=== PATIENT | female | born 1970 | race Caucasian/White ===

== ENCOUNTER → 2019-11-14 11:21 | Outpatient (CLI) | payer OTHER, SELFPAY ==
--- NOTE | ~2019-11-14 | MM_ITS ---
EXAMINATION: MM screening mark anthony BI w isaura HISTORY: Screening mammogram TECHNIQUE: Craniocaudal and mediolateral oblique 3-D tomosynthesis images were obtained and synthetic 2-D images were generated. CAD analysis was submitted and interpreted. COMPARISON: 08/02/2018, 06/29/2017, 06/23/2016 bilateral digital screening mammogram examinations BREAST PARENCHYMAL COMPOSITION: There are scattered areas of fibroglandular density. FINDINGS: There are scattered bilateral benign calcifications. There is no evidence of suspicious mas s, calcification, or architectural distortion to suggest malignancy in either breast. There has been no suspicious interval change. IMPRESSION: 1. No mammographic evidence of malignancy. 2. Recommend routine screening mammography in one year. BI-RADS Category 2: Benign finding(s). Reviewed, dictated and finalized at location A.
== END ==
PROVIDERS: Visit Provider Obstetrics & Gynecology
DX: Z12.31 Encounter for screening mammogram for malignant neoplasm of breast (principal)
CPT/HCPCS: 77063; 77067

== ENCOUNTER → 2020-12-27 13:14 | Outpatient (CLI) | payer OTHER, SELFPAY ==
--- NOTE | ~2020-12-27 | MM_ITS ---
EXAMINATION: MM screening mark anthony BI w isaura HISTORY: Screening mammogram TECHNIQUE: Craniocaudal and mediolateral oblique 3-D tomosynthesis images were obtained and synthetic 2-D images were generated. CAD analysis was submitted and interpreted. COMPARISON: 11/14/2019, , 06/29/2017, 06/19/2016, 06/01/2015, 3 5 07/2014, 04/22/2013 bilateral scr eening mammogram examinations bilateral digital screening mammogram examinations BREAST PARENCHYMAL COMPOSITION: The breasts are heterogeneously dense, which may obscure small masses . FINDINGS: Approximately 5 x 12 mm asymmetric opacity is noted anteriorly in the inner mid right breas t. Diagnostic right mammogram is recommended, with ultrasound if required. Otherwise there is no evidence of suspicious mass, calcification, or architectural distortion to sugg est malignancy in either breast. There has been no other suspicious interval change. IMPRESSION: 1. Focal asymmetry in the anterior inner mid right breast 2. Diagnostic right mammogram is recommended, with ultrasound if required BI-RADS Category 0: Incomplete: Needs additional imaging evaluation. Reviewed, dictated and finalized at location A.
== END ==
PROVIDERS: Visit Provider Obstetrics & Gynecology
DX: Z12.31 Encounter for screening mammogram for malignant neoplasm of breast (principal); R92.8 Other abnormal and inconclusive findings on diagnostic imaging of breast
CPT/HCPCS: 77063; 77067

== ENCOUNTER 2021-01-11 13:41 | Outpatient (CLI) | payer OTHER, SELFPAY ==
--- NOTE | ~2021-01-11 | MMUS_ITS ---
EXAMINATION: MM diagnostic mark anthony RT w isaura, US breast RT limited HISTORY: Focal asymmetry reported in anterior inner mid right breast on 12/27/2020 screening mammogra m TECHNIQUE: Additional 3-D tomosynthesis images of the right breast were performed and synthetic 2-D i mages were generated. CAD analysis was submitted and interpreted. High resolution upper inner and low er inner quadrant right breast ultrasound was performed. COMPARISON: 12/27/2020, 11/14/2019, 08/02/2018, 06/29/2017 bilateral screening mammogram FINDINGS: MAMMOGRAPHIC FINDINGS: A circumscribed smooth margin wishbone-shaped approximately 3.3 x 15 mm opacity is noted in the anter ior inner right breast. Upper and lower inner right breast ultrasound examination was performed for c orrelation. ULTRASOUND: A mildly irregular antiparallel approximately 3.9 mm wide 5.1 mm deep lesion is noted at 3:00 1 cm fr om the nipple, corresponding to the mammographic finding. Some posterior shadowing is noted. Ultrasou nd-guided biopsy is recommended. IMPRESSION: 1. Mildly irregular antiparallel 3.9 x 5.1 mm mildly shadowing sonographic lesion at 3:00 1 cm from t he nipple 2. Ultrasound-guided biopsy is recommended BI-RADS category 4, suspicious findings. Dr. Sheldon telephoned the report and ultrasound guided biopsy recommendation of the right breast 3:[address] Gardner's emergency service on 01/11/2021 at 1640 hours. Reviewed, dictated and finalized at location A. F TENDER HELPER IMPRESSION: 1. Mildly irregular antiparallel 3.9 x 5.1 mm mildly shadowing sonographic lesi on at 3:00 1 cm from the nipple 2. Ultrasound-guided biopsy is recommended BI-RADS category 4, suspicious findings. Dr. Sheldon telephoned the report and ultrasound guided biopsy recommendation of t he right breast 3:[address] Gardner's emergency service on 01/11/2021 at 1640 hours.
== END 2021-01-11 13:42 | disposition home or self-care (01) ==
LOC: ANHIMG 13:43
PROVIDERS: Visit Provider Obstetrics & Gynecology
DX: N63.15 Unspecified lump in the right breast, overlapping quadrants (principal)
CPT/HCPCS: 76642; 77061; 77065; G0279

== ENCOUNTER 2021-02-18 01:51 | Day surgery (SDC) | payer OTHER, SELFPAY ==
[2021-02-07 13:09] VITALS: BMI 31.2
--- NOTE | 2021-02-18 08:11 | WPDANESEPPF ---
Anes - Initial Pre Proc Eval Procedure: Operation Date: 02/18/21 09:30 Proposed Procedures p Screening Colonoscopy - Narendra Green MD Date/Time: 02/18/21 08:11 Surgeon: Narendra Green MD Pre Op Diagnosis: neoplasm screening Patient Data Age: 51 Gender: F Height: 1.6 m Weight: 80 kg Allergies Allergy/AdvReac Type Severity Reaction Status Date / Time No Known Allergies Allergy Verified 02/18/21 08:54 Home Medications Medication Instructions Recorded Confirmed Type No Home Medications 11/17/19 02/18/21 History Patient hx anesthesia problems: none Family hx anesthesia problems: none Results Review: All pre-operative results and documents have been reviewed as part of the pre-operative evaluation. [facility] Surgical History Surgical History History of section Family History Family History Father Hypertension Social History Social History Smoking status: Never smoker Alcohol intake: current Drinks per week: 3 Living arrangements: alone Spiritual care concerns: No Anes - Eval Final PreProcedure Day of Procedure 02/18/21 08:11 Patient weight: obese Heart: regular rate and rhythm Lungs: clear to auscultation and normal air movement Airway: Mallampati scale class II Neurological: alert and oriented Last oral intake: >/= 8 hours ASA classification: II Emergent: no Anesthetic plan: proceed Anesthesia type and monitoring: general GIVS and standard monitoring Results Review: All pre-operative results and documents have been reviewed as part of the pre-operative evaluation. Informed Consent: The patient's anesthetic plan and its attendant risks and benefits were discussed with the patient/family/POA. Questions were solicited and answers provided to the satisfaction of the patient/family/POA.
[2021-02-18 08:55] VITALS: BP 144/94; PULSE 98; RESP 18; TEMP 37.3; O2SAT 97; BMI 30.4
[2021-02-18] MEDS: LACTATED RINGERS 1,000 ML 150 ML IV CONT ×2 (08:58→09:35)
--- NOTE | 2021-02-18 09:18 | P.CONGI_ITS ---
Assessment and Plan Assessment and plan (1) Encounter for screening colonoscopy: Code(s): Z12.11 - Encounter for screening for malignant neoplasm of colon Status: Acute Assessment and Plan: Patient presents for screening colonoscopy today. She appears to be at average risk for colon polyps. GI Consult Note Consult date/time: 02/18/21 09:18 HPI: Jaqui Ospina is a 51 year old female presents for screening colonoscopy. Patient's current weight appetite bowel movements are normal. She denies abdominal pain. She has had no bleeding. Family history noncontributory. Review of Systems Review of Systems: All systems reviewed & are unremarkable except as noted in HPI and below PMFSH Surgical History Surgical History History of section Family History Family History Father Hypertension Social History Social History Smoking status: Never smoker Alcohol intake: current Drinks per week: 3 Living arrangements: alone Spiritual care concerns: No Meds Home Medications and Allergies Home Medications Medication Instructions Recorded Confirmed Type No Home Medications 11/17/19 02/18/21 History Allergies Allergy/AdvReac Type Severity Reaction Status Date / Time No Known Allergies Allergy Verified 02/18/21 08:54 Vital Signs Vital Signs - 24 hr 02/18/21 08:55 Temperature 99.1 F Pulse Rate 98 Respiratory Rate 18 Blood Pressure 144/94 H Pulse Oximetry 97 Exam Narrative: Physical exam reveals patient be alert. Vital signs stable. HEENT exam is unremarkable. Patient is anicteric. Lungs are clear to auscultat ion and percussion. Heart is without murmur or extra sounds. Abdominal exam bowel sounds are present soft nontender with no hepatosplenomegaly. Digital external rectal exam is normal.
[2021-02-18 09:25] LABS: Beta HCG Quantitative 8.75 mIU/ML
--- NOTE | 2021-02-18 10:07 | PC.NURSE ---
2 bedside tests resulted as positive, Dr. Green and Dr. Benz notified and a blood test was ran. Results were reported to Dr. Benz when blood test was resulted.
[2021-02-18 10:14] VITALS: BP 125/73; PULSE 72; RESP 20; O2SAT 100
[2021-02-18 10:24] VITALS: BP 127/90; PULSE 79; RESP 26; O2SAT 100
[2021-02-18 10:34] VITALS: BP 124/86; PULSE 62; RESP 14; O2SAT 100
== END 2021-02-18 10:49 | disposition home or self-care (01) ==
PROVIDERS: Anesthesiology; PCP Internal Medicine; Referring Provider Obstetrics & Gynecology; Visit Provider Internal Medicine Gastroenterology
PROC: 0DJD8ZZ Inspection of Lower Intestinal Tract, Via Natural or Artificial Opening Endoscopic (ICD-10-PCS; CPT 45378; principal; 2021-02-18 09:30)
DX: Z12.11 Encounter for screening for malignant neoplasm of colon (principal); K64.8 Other hemorrhoids; D12.4 Benign neoplasm of descending colon
CPT/HCPCS: 45385; 36415; 84702; 88305; J2704; J7120

== ENCOUNTER 2022-02-21 10:36 | Outpatient (CLI) | payer OTHER, SELFPAY ==
--- NOTE | ~2022-02-21 | MM_ITS ---
EXAMINATION: MM screening mark anthony BI w isaura HISTORY: Screening TECHNIQUE: Craniocaudal and mediolateral oblique 3-D tomosynthesis images were obtained and synthetic 2-D images were generated. CAD analysis was submitted and interpreted. COMPARISON: Comparison to multiple prior studies sequentially, with oldest reviewed study dated 06/29. BREAST PARENCHYMAL COMPOSITION: The breasts are heterogeneously dense, which may obscure small masses . FINDINGS: There is no evidence of suspicious mass, calcification, or architectural distortion to sugg est malignancy in either breast. There has been no suspicious interval change. IMPRESSION: 1. No mammographic evidence of malignancy. 2. Recommend routine screening mammography in one year. BI-RADS Category 1: Negative Reviewed, dictated and finalized at location A. ICAL WAREHOUSE WORKER
== END 2022-02-21 10:37 | disposition home or self-care (01) ==
LOC: ANHIMG 10:38
PROVIDERS: PCP Internal Medicine; Visit Provider Obstetrics & Gynecology
DX: Z12.31 Encounter for screening mammogram for malignant neoplasm of breast (principal)
CPT/HCPCS: 77063; 77067

== ENCOUNTER → 2023-04-24 10:29 | Outpatient (CLI) | payer OTHER, SELFPAY ==
--- NOTE | ~2023-04-24 | MM_ITS ---
EXAMINATION: MM screening mark anthony BI w isaura HISTORY: Screening TECHNIQUE: Craniocaudal and mediolateral oblique 3-D tomosynthesis images were obtained and synthetic 2-D images were generated. CAD analysis was submitted and interpreted. COMPARISON: Comparison to multiple prior studies sequentially, with oldest reviewed study dated 06/29. BREAST PARENCHYMAL COMPOSITION: Dense: The breasts are heterogeneously dense, which may obscure small masses FINDINGS: There is a possible new area of architectural distortion laterally in the left breast on CC view. The right breast is stable without evidence for malignancy. IMPRESSION: 1. Possible new area of architectural distortion left breast. 2. Additional mammographic views and possible breast ultrasound are recommended. BI-RADS Category 0: Incomplete: Needs additional imaging evaluation. Reviewed, dictated and finalized at location A. ITURE DETAILER IMPRESSION: 1. Possible new area of architectural distortion left breast. 2. Additional mammographic views and possible breast ultrasound are recommended . BI-RADS Category 0: Incomplete: Needs additional imaging evaluation.
== END ==
PROVIDERS: PCP Obstetrics & Gynecology; Visit Provider Registered Nurse
DX: Z12.31 Encounter for screening mammogram for malignant neoplasm of breast (principal); R92.8 Other abnormal and inconclusive findings on diagnostic imaging of breast
CPT/HCPCS: 77063; 77067

== ENCOUNTER 2023-05-21 08:11 | Outpatient (CLI) | payer OTHER, SELFPAY ==
--- NOTE | ~2023-05-21 | MMUS_ITS ---
EXAMINATION: MM diagnostic mark anthony LT w isaura, US breast LT complete HISTORY: Follow-up left breast asymmetry TECHNIQUE: Additional 3-D tomosynthesis images of the left breast were performed and synthetic 2-D im ages were generated. CAD analysis was submitted and interpreted. High resolution complete left breast ultrasound was performed. COMPARISON: Comparison to multiple prior studies sequentially, with oldest reviewed study dated 08/02. BREAST PARENCHYMAL COMPOSITION: Dense: The breasts are heterogeneously dense, which may obscure small masses FINDINGS: MAMMOGRAPHIC FINDINGS: There are no suspicious masses, calcifications or architectural distortion in the left breast to sugg est malignancy. There are benign calcifications. ULTRASOUND: Complete US of all 4 quadrants of the left breast and retroareolar region was reviewed. At 12:00, 4.5 cm from the nipple there is a cluster of microcysts measuring 9 mm. At 1:00, 6 cm from the nipple th ere is a complicated partially cystic 6 mm mass with slightly irregular margins. No internal vascular ity or posterior features. There is a 5 mm complicated cyst. At 1:00, 6 cm from the nipple there is a bilobed hypoechoic mass measuring 8 mm with parallel orientation, no internal vascularity and no pos terior features. At 5:00, 4 cm from the nipple there is a complicated 5 mm cyst. Mildly prominent shanita t present at 9:00, 4.5 cm from the nipple. At 11:00, 4 cm from the nipple there is an oval hypoechoic 5 mm mass without posterior features or internal vascularity, likely benign. At 10:00, 3 cm from the nipple there is an oval circumscribed hypoechoic mass with marginal vascularity, no posterior featur es measuring 3 mm, likely benign. IMPRESSION: 1. At 1:00, 6 cm from the nipple, there is an irregular shaped 6 mm mass. Follow-up ultrasound biopsy recommended. 2. Multiple additional likely benign left breast masses are seen for which six-month follow-up ultras ound recommended. BI-RADS CATEGORY 4-SUSPICIOUS ABNORMALITY Reviewed, dictated and finalized at location A. IMPRESSION: 1. At 1:00, 6 cm from the nipple, there is an irregular shaped 6 mm mass. Follo w-up ultrasound biopsy recommended. 2. Multiple additional likely benign left breast masses are seen for which six- month follow-up ultrasound recommended. BI-RADS CATEGORY 4-SUSPICIOUS ABNORMALITY
== END 2023-05-21 08:12 ==
LOC: MICIMG 08:13
PROVIDERS: PCP Obstetrics & Gynecology; Visit Provider Obstetrics & Gynecology
DX: R92.8 Other abnormal and inconclusive findings on diagnostic imaging of breast (principal)
CPT/HCPCS: 76641; 77061; 77065; G0279

== ENCOUNTER 2023-07-08 08:09 | Outpatient (CLI) | payer OTHER, SELFPAY ==
--- NOTE | ~2023-07-08 | US_ITS ---
US breast LT limited DATE: 07/08/2023 09:04 INDICATION: Patient presented for ultrasound-guided biopsy of irregular-shaped 6 mm mass at 1:00 6 cm from nipple TECHNIQUE: Real-time imaging was performed targeting the 1:00 lesion 6 cm from nipple COMPARISON: 05/21/2023 month complete breast ultrasound examination FINDINGS: There is a circumscribed hypoechoic solid lesion with fatty hilum at 1:00 6 cm from nipple. The lesion measures approximately 3.4 x 5.3 x 4.1 mm, stable since 05/21/2023. There is no abnormal p osterior shadowing. The sonographic appearance is most consistent with benign intramammary lymph node. The area was scanned in the patient's presence and I demonstrated and explained the sonographic findi ngs and indicated that biopsy was not indicated at this time given the benign features. I indicated t hat this area could be reviewed in 6 months with the six-month recommended ultrasound follow-up of th e other areas from the 05/21/2023 left breast ultrasound examination. IMPRESSION: BI-RADS Category 3: Probably benign findings Recommendation: 6 month left breast ultrasound follow-up Reviewed, dictated and finalized at Location A. Reviewed, dictated and finalized at location A.
== END 2023-07-08 08:10 | disposition home or self-care (01) ==
PROVIDERS: PCP Obstetrics & Gynecology; Visit Provider Surgery
DX: R92.8 Other abnormal and inconclusive findings on diagnostic imaging of breast (principal)
CPT/HCPCS: 76642

== ENCOUNTER 2024-01-15 08:40 | Outpatient (CLI) | payer BC, SELFPAY ==
--- NOTE | ~2024-01-15 | US_ITS ---
EXAMINATION TYPE: US breast LT limited COMPARISON: 07/08/2023, 05/21/2023 REASON FOR STUDY: R92.8 - Other abnormal and inconclusive findings on diagn... TECHNIQUE: Targeted sonographic evaluation of the left breast was performed. INTERPRETATION: At the 1:00 position left breast, 6 cm from the nipple, there is a stable 5 mm hypoechoic circumscrib ed mass with fatty hilum, consistent with benign lymph node. IMPRESSION: Stable 5 mm left breast mass, as above, consistent with benign lymph node. BI-RADS CATEGORY: BI-RADS 2: Benign Reviewed, dictated and finalized at location . SSIONS CLINICIAN
== END 2024-01-15 08:41 | disposition home or self-care (01) ==
LOC: MICIMG 08:41
PROVIDERS: PCP Obstetrics & Gynecology; Visit Provider Surgery
DX: R92.8 Other abnormal and inconclusive findings on diagnostic imaging of breast (principal)
CPT/HCPCS: 76642

== ENCOUNTER 2024-02-26 10:44 | Emergency (ER) | payer BC, SELFPAY ==
[2024-02-26 11:38] VITALS: BP 149/95; PULSE 70; RESP 18; TEMP 36.5; O2SAT 97
--- NOTE | 2024-02-26 12:29 | ED_ITS ---
HPI - Eye Problem General Chief complaint: Eye Problems Stated complaint: bilateral eye irritation Time Seen by Provider: 02/26/24 12:38 Source: patient, RN notes reviewed and old records reviewed Mode of arrival: ambulatory Limitations: no limitations History of Present Illness HPI Narrative: 54-year-old female presents to the [facility] with complaints of bilateral eye irritation. Redness to the left eye started on , 2 days ago. Right eye started at this morning. Does not wear contacts, no trauma. Patient reports crusting this morning and yesterday morning. Increased tearing. Denies any change in vision. Onset (ago): day(s) (2) Related Data Allergies Allergy/AdvReac Type Severity Reaction Status Date / Time No Known Allergies Allergy Verified 02/26/24 12:50 Review of Systems Review of Systems: All systems reviewed & are unremarkable except as noted in HPI and below Constitutional: Constitutional: Reports no additional constitutional complaints Eyes: Eyes: Reports as per HPI ENT: Reports system reviewed and no additional complaints, except as documented Cardiovascular: Cardiovascular: Reports no additional cardiovascular complaints, Denies chest pain and Denies dyspnea Respiratory: Respiratory: Reports no additional respiratory complaints, Denies chest congestion, Denies cough and Denies dyspnea Musculoskeletal: Musculoskeletal: Reports no additional musculoskeletal complaints Integumentary/Breasts: Skin/Breast: Reports system reviewed and no additional complaints, except as docu PMFSH Surgical History Surgical History History of 3 sections Family History Family History Father Hypertension Social History Social History Smoking status: Never smoker Alcohol intake: current Drinks per week: 3 Substance use: never Substance use type: does not use Do You Feel Safe in your Home?: Yes Lack of Transportation: No Lack of Food: Never True Current Housing: I Have Housing Concerned About Future Housing: No Difficulty Paying Gas/Electric Bills: No Difficulty Paying for Meds: No Currently Unemployed: No Education: Bachelor's Degree Difficulty w/ Childcare or Family Care: No Living arrangements: alone Spiritual care concerns: No Comments At the time of my signature, I reviewed and agree with the nursing past medical, surgical, social, and family history. There is no relevant family history pertinent to the patient complaint. Exam Const: General: cooperative, healthy appearing, comfortable, no acute distress, well developed, alert and well nourished Nutritional Appearance: well nourished Orientation/consciousness: patient oriented x3 Limitations: no limitations HENMT: Head: normal to inspection Ears: hearing grossly normal bilaterally, external ears normal, TM's normal bilaterally, EAC's normal, mastoids normal and no periauricular adenopathy Face/Nose/Sinus: normal facial exam and face symmetric Face and sinus: normal facial exam and face symmetric Mouth: Yes Normal oral and palatal mucosa present, Yes lip normal, Yes tongue normal and Yes moist mucous membranes Throat: posterior oropharynx normal, uvula midline and no uvular edema Eyes: General: appearance normal, both eyes and all related structures Eyelids: eyelid abnormality left upper eyelid lid margins crusty/scaly; without erythema Conjunctivae: conjunctival abnormality bilateral conjunctival injection (Greater on the left than the right) and discharge mucoid Neck: Neck: normal visual inspection, full ROM, no lymphadenopathy and no meningeal signs Chest: Chest palpation & inspection: normal inspection of the chest Resp: Effort & Inspection: normal respiratory effort and able to speak in complete sentences Auscultation: clear to auscultation bilaterally, no crackles, no rales, no rhonchi and no wheezes Cardio: Rate: regular rate Skin: General skin exam: normal color and no rashes or lesions noted Neuro: General: patient oriented x3, gait normal, moves all extremities and no meningeal signs Cognition (Neuro): normal cognition Speech: normal speech Gait exam (Neuro): Normal gait present Extrem: General: normal to inspection, full ROM, capillary refill normal and normal gait Psych: Appearance: grossly normal and well kempt Mental Status: mental status grossly normal Speech and movement: Normal speech and movement present and Clear speech present Affect: normal affect Attitude: cooperative Course Course Level of Care: Express Care Visit Vital Signs Vital signs: Vital Signs Temperature 97.7 F 02/26/24 11:38 Pulse Rate 70 02/26/24 11:38 Respiratory Rate 18 02/26/24 11:38 Blood Pressure 149/95 H 02/26/24 11:38 Pulse Oximetry 97 02/26/24 11:38 Oxygen Delivery Room Air 02/26/24 11:38 Temperature 97.7 F 02/26/24 11:38 Pulse Rate 70 02/26/24 11:38 Respiratory Rate 18 02/26/24 11:38 Blood Pressure 149/95 H 02/26/24 11:38 Pulse Oximetry 97 02/26/24 11:38 Oxygen Delivery Room Air 02/26/24 11:38 Reviewed MDM - Eye Problem MDM Narrative Medical decision making narrative: Patient sitting comfortably in exam room. Nontoxic, vitals stable. Patient presents with bilateral erythema, drainage, crusting to her eyes. Exam consistent with conjunctivitis Patient appropriate for outpatient treatment antibiotics and close follow-up. Discharge instructions reviewed with patient, as well as provided in writing per nursing staff. The instructions also include specific and strict return/GO TO THE ER as well as f/u information. All questions have been answered, and the patient deny any further questions with discharge and discharge plan. Some parts of this dictation were generated by voice recognition software and may contain typographical and/or grammatical inaccuracies. Differential Diagnosis Differential diagnosis: Likely conjunctivitis, acute iritis and subconjunctival hemorrhage Critical Care Time Critical Care Time Critical Care Time: No Discharge Plan Discharge Clinical Impression: Acute conjunctivitis of both eyes Qualifiers: Acute conjunctivitis type: unspecified Qualified Code(s): H10.33 - Unspecified acute conjunctivitis, bilateral Patient Disposition: Home, Self-Care Condition: Stable Instructions: Antibiotic Form, Conjunctivitis (ED) Additional Instructions: Apply a cool, damp compress to your affected eye. Be sure to use a clean cloth each time to avoid spreading the infection. Gently clean your eyes with wet cotton balls or pads to remove crusty buildup or irritating discharge. Use prescription eye drops as prescribed Maintain good hygiene and only touch your eyes with freshly washed hands. You should follow-up with an eye doctor within the next 72 hours Regulo: [place]- [phone] [facility] [phone] [facility] [phone] Cristina: [place]- [phone] or [phone] [facility] [phone] [facility] [phone] [facility] [phone] [facility]- [phone] Patient Language: Italian Prescriptions: New ofloxacin 0.3 % drops See Rx Instructions EACH EYE .COMPLEX Qty: 10 0RF Rx Instructions: put 1-2 drps into each eye every 2 h x 2 days, then 1-2 drps 4 times/day days 3-7 Follow-up/Referrals: UNKNOWN,DOCTOR [Primary Care Provider] - Time of Disposition: 12:47
== END 2024-02-26 12:53 | disposition home or self-care (01) ==
PROVIDERS: Emergency Provider Nurse Practitioner
DX: H10.33 Unspecified acute conjunctivitis, bilateral (principal)
CPT/HCPCS: 99213; G0463

== ENCOUNTER 2024-08-19 08:09 | Outpatient (CLI) | payer BC, SELFPAY ==
--- NOTE | ~2024-08-19 | MM_ITS ---
EXAMINATION: MM screening mark anthony BI w isaura HISTORY: Screening TECHNIQUE: Craniocaudal and mediolateral oblique 3-D tomosynthesis images were obtained and synthetic 2-D images were generated. CAD analysis was submitted and interpreted. COMPARISON: Comparison to multiple prior studies sequentially, with oldest reviewed study dated 11/13. BREAST PARENCHYMAL COMPOSITION: There are scattered areas of fibroglandular density. FINDINGS: There is no evidence of suspicious mass, calcification, or architectural distortion to sugg est malignancy in either breast. There has been no suspicious interval change. IMPRESSION: 1. No mammographic evidence of malignancy. 2. Recommend routine screening mammography in one year. BI-RADS Category 1: Negative Reviewed, dictated and finalized at location A.
== END 2024-08-19 08:10 | disposition home or self-care (01) ==
LOC: MICIMG 08:09
PROVIDERS: PCP Surgery; Visit Provider Surgery
DX: Z12.31 Encounter for screening mammogram for malignant neoplasm of breast (principal)
CPT/HCPCS: 77063; 77067

== ENCOUNTER 2024-09-16 08:28 | Outpatient (CLI) | payer BC, SELFPAY ==
--- NOTE | ~2024-09-16 | US_ITS ---
US breast LT complete 09/16/2024 08:55 Indication: Left breast lump Procedure: High-resolution complete ultrasound of the left breast including all 4 quadrants in the udval bareolar location. Comparison: No prior studies for comparison. Findings: At 9:00, 3 cm from the nipple there is a 3 mm cyst. No suspicious masses in the left breast to suggest malignancy. Impression: 1: No sonographic evidence for malignancy in the left breast. Routine yearly screening mammogram and regular clinical breast examination are recommended. BI-RADS CATEGORY 2 - BENIGN FINDINGS Reviewed, dictated and finalized at location B. Impression: 1: No sonographic evidence for malignancy in the left breast. Routine yearly screening mammogram and regular clinical breast examination are recommended. BI-RADS CATEGORY 2 - BENIGN FINDINGS
== END 2024-09-16 08:29 | disposition home or self-care (01) ==
LOC: MICIMG 08:29
PROVIDERS: PCP Surgery; Visit Provider Surgery
DX: N63.20 Unspecified lump in the left breast, unspecified quadrant (principal); N63.21 Unspecified lump in the left breast, upper outer quadrant; N63.22 Unspecified lump in the left breast, upper inner quadrant
CPT/HCPCS: 76641